=== PATIENT | female | born 1960 | race Caucasian/White ===

== ENCOUNTER 2016-07-16 04:18 | Inpatient (IN) | payer MEDICAID ==
[~2016-07-16] VITALS: Ht 154.9 cm; Wt 57.5 kg
[~2016-07-16 04:18] MED LIST: ASPIRIN EC81 MG PO; BENADRYL-DPS50 MG PO; BENEFIBER475 GM PO; CO Q-1010 MG PO; DUONEB DPS3 ML IH; EPSOM SALT TP; FISH OIL 1,2001 EACH PO; GARLIC1 EAC1 PO; HUMALOG100 UNIT/1 SQ; HYDROCODON-ACE1 EAC2 PO; INVANZ1 G1 IV; KLOR-CON PO; LANTUS100 UNITS/ SQ; LASIX DPS20 MG PO; LASIX40 MG PO; MAALOX DPS30 ML PO; MAG-OX400 MG PO; MELATONIN5 M2 PO; MEVACOR20 MG PO; NEURONTIN DPS100 MG PO; NORCO 5-325 TA1 EACH PO; NOVOLOG100 UNIT/2 SQ; PEPCID20 MG PO; TOUJEO SOL300 UNIT/1 SQ; TYLENOL325 MG PO; VITAMIN PO; ZESTRIL DPS2.5 MG PO; [UNRECOGNIZED DRUG - OTHER] PO; [UNRECOGNIZED DRUG - OTHER] PO
--- NOTE | 2016-07-18 07:05 | ER ---
ADMIT: 07/16/2016 RM/LOC: ER [facility] MR#: [id number] [address] [facility] [place], [place] [address] RACHNA HOLDER [address] [place], [place] [address] Emergency Room Report SEX: F AGE: 55 : 1960 DATE: 07/16/2016 The patient is a 55-year-old female with a past medical history of hypertension; diabetes; hyperlipidemia; coronary artery disease, status post five-vessel stent in June 2016. The patient was discharged last week from [facility] and states that she felt okay and she was ambulated until today that she was not able to walk because of generalized weakness and did not feel good and felt dizzy. The patient denied any chest pain or increased shortness of breath. The patient had chest pain on June 25 and had STEMI and got one cardiac stent in [place], and was transferred to [facility] and over there per patient, got 4 more stents and also the fluid was taken out from bilateral lungs because of shortness of breath. The patient was discharged last week. In the ER, the patient had systolic blood pressure in the low 80s, comparing with the previous systolic blood pressure of 95 to 105 in previous visit, with the MAP of 55 to 60. The patient was started on IV fluid. Sepsis workup was started. The patient was afebrile in the ER. EKG did not show any ST or T changes or arrhythmia. The patient received closed to 2 L of fluid. Chest x-ray was positive for very mild bilateral effusion. The patient also had an echocardiographic from [facility] with ejection fraction of 35% to 40% for the left heart. The patient had hemoglobin of 8.3 with WBC of 8.1 and platelet of 373,000, lactic acid was 1.2. Electrolytes are grossly normal. Troponin I is elevated mildly with 0.065, also proBNP was elevated to 5200. Internal Medicine was consulted, and the patient was admitted for further followups and treatment with Cardiology on board. DIAGNOSES: 1. Dehydration. 2. Dizziness. 3. Congestive heart failure, rule out nza-XJ-exyiyczvj myocardial infarction, rule out sepsis. Diony Sim MD/ ariel JOB #: [id number] CC: Diony Sim MD, Attending Physician Roly Holland DO, Family Physician
--- NOTE | 2016-07-23 14:54 | NUR ---
Pt contacted Karishma at [facility]. States she can't afford her dc medication Linzess. Karishma contacted [facility]. [facility] contact [address] [facility] Dillon of the Linzess is $355.00 and [facility] is unable to help due to the high cost of the medication. Pt is aware and states she contacted the doctors office already and has a message for the doctor asking for samples or a different medication. Pt will contact [facility] for further needs or concerns.
[2016-07-23] MEDS ORDERED: LINZESS145 MCG PO (18:40)
[2016-07-23] MEDS ORDERED: NEURONTIN DPS100 MG PO (18:40)
[2016-07-23] MEDS ORDERED: ZESTRIL DPS2.5 MG PO (18:40)
[2016-07-23] MEDS ORDERED: CARVEDILOL3.125 MG PO (18:40)
[2016-07-23] MEDS ORDERED: BRILINTA90 MG PO (18:40)
[2016-07-23] MEDS ORDERED: LIPITOR40 MG PO (18:40)
[2016-07-23] MEDS ORDERED: MAGNESIUM OXID400 MG PO (18:41)
[2016-07-23] MEDS ORDERED: PEPCID DPS20 MG PO (18:41)
[2016-07-23] MEDS ORDERED: RANEXA1000 MG PO (18:41)
[2016-07-23] MEDS ORDERED: TOUJEO SOL300 UNIT/1 SQ (18:42)
[2016-07-23] MEDS ORDERED: ASPIRIN EC81 MG PO (18:42)
[2016-07-23] MEDS ORDERED: LASIX DPS80 MG PO (18:42)
[2016-07-23] MEDS ORDERED: REGLAN-DPS10 MG PO (18:44)
[2016-07-23] MEDS ORDERED: NOVOLIN R,100 UNITS/ SQ (18:44)
--- NOTE | 2016-07-26 08:25 | HP ---
ADMIT: 07/16/2016 RM/LOC: 306 [facility] MR#: [id number] [address] [facility] [place], [place] [address] RACHNA HOLDER [address] [place], [place] [address] History and Physical SEX: F AGE: 55 : 1960 DATE OF SERVICE: 07/16/2016 REASON FOR HOSPITALIZATION: Hypotension. HISTORY OF PRESENT ILLNESS: A 55-year-old, female patient, recently suffered AL, underwent cardiac catheterization, PCI here and then transferred to [facility] and underwent additional intervention. She was dismissed and had been doing relatively well, but has intermittent episodes of nausea. Over the last 24 to 48 hours, she has been nauseated and states that she is only able to drink about half a bottle water throughout the day yesterday. She then became generally weak, her son tried to stand her up, but she became dizzy and was unable to stand. They called the emergency squad and brought her to the emergency room where she was found to be hypotensive. PAST MEDICAL HISTORY: She does have a history of diabetes mellitus, foot surgery, peripheral neuropathy, coronary artery disease, myocardial infarction, MRSA of the foot, prior foot surgery for exploration and foreign body removal. MEDICATIONS: Include: 1. Lasix. 2. Spironolactone, and otherwise awaiting the completion of her intake med list. There are dismissal meds from the [facility] from recent, which did show: 1. Aspirin 81 mg daily. 2. Atorvastatin. 3. Lipitor 40 mg daily. 4. Carvedilol 3.125 mg b.i.d. 5. Doxycycline 100 mg b.i.d. 6. Lasix 20 mg daily. 7. Gabapentin 100 mg two capsules three times a day. 8. Lortab. 9. Insulin regular. 10.Lisinopril 2.5 mg daily. 11.Magnesium oxide. 12.Melatonin. 13.Ranexa. 14.Aldactone. 15.Brilinta. 16.Toujeo. For specifics of dosing, please refer to her finalized medication list. SOCIAL HISTORY: Noncontributory. She does live independently. FAMILY HISTORY: Noncontributory. REVIEW OF SYSTEMS: She denies any current chest pain, nausea, but did have nausea at presentation. She has been having some trouble with nausea around ADMIT: 07/16/2016 RM/LOC: 306 [facility] MR#: [id number] [address] [facility] [place], [place] [address] RACHNA HOLDER [address] [place] [address] History and Physical SEX: F AGE: 55 : 1960 mealtimes bringing up the concern of possible gastroparesis. She denies any history of gallbladder disease, but still does have her gallbladder and does not think that it has been evaluated. She denies any bleeding. PHYSICAL EXAMINATION: GENERAL: She is pleasant and alert. She is a good historian. VITAL SIGNS: In the ER, she was hypotensive, her blood pressure now systolics in the mid 90s. HEART: Regular. LUNGS: Otherwise clear. ABDOMEN: Soft, nontender. LABORATORY DATA: BUN 16, creatinine 0.8, potassium 3.6, magnesium 1.6, hemoglobin 8.3. IMPRESSION: 1. Dehydration and hypotension with underlying history of coronary artery disease and ischemic cardiomyopathy and reported ejection fraction of 35%. 2. Diabetes. 3. Possible gastroparesis. 4. Coronary artery disease. 5. Anemia. PLAN: Admit, gentle hydration, hold her diuretics, ask Cardiology to see and assist with her cardiac cares. We will perform ultrasound of her abdomen. Consider gastric emptying study. Watch hemoglobin and hematocrit. Replace magnesium. Roly Holland DO/ modl JOB #: [id number] CC: Roly Holland, Attending Physician Roly Holland, Family Physician
[2016-08-10] MEDS ORDERED: BACTRIM DS TAB1 EACH PO (11:04)
[2016-08-10] MEDS ORDERED: KLOR-CON M2020 ME1 PO (11:04)
[2016-08-10] MEDS ORDERED: TYLENOL EXTRA500 M1 PO (11:05)
--- NOTE | 2016-08-31 10:51 | DS ---
ADMIT: 07/16/2016 RM/LOC: 509 [facility] MR#: [id number] ACC#: [id number] [address] [address] RACHNA HOLDER Deven [address] [place] [address] Discharge Summary SEX: F AGE: 55 : 1960 ADMISSION DATE: 07/16/2016 DISCHARGE DATE: 07/22/2016 REASON FOR HOSPITALIZATION: Dehydration, hypotension. HISTORY OF PRESENT ILLNESS: A 55-year-old, female patient, recently suffered an WA with cardiac catheterization and PCI, had developed nausea 48 hours prior to presentation with poor p.o. intake and difficulty staying hydrated. She continued to take her diuretic dosing in spite of this. She reported that she was unable to stand even with assistance and was dizzy. She came to the emergency room where she was found to be hypotensive. HOSPITAL COURSE: She was admitted to the hospital, underwent management of her chronic diabetes and general care. We performed ultrasound of her abdomen, gave her IV fluids, held her diuretics, and kept her n.p.o. initially. I did replace her magnesium, and set her up for a Cardiology evaluation. They did not think her issues were rhythm or cardiac related. She did have a mild bump in her troponin, and they felt that this was not cardiac in nature. We did an ultrasound and perform evaluation for gastroparesis. She was started on Reglan and insulin doses were adjusted. Ultrasound of her gallbladder did show a thickened gallbladder wall. We did also schedule her for a gastric emptying study. She did have a pleural effusion and she underwent thoracentesis, which did improve her respiratory status. She was having some dyspnea with exertion prior to this. Her HIDA scan was negative. Gastric emptying study was markedly abnormal with significant delay in gastric emptying. On 07/22/2016, we felt she was appropriate for dismissal home. FINAL DIAGNOSES: 1. Three-vessel coronary artery disease. 2. Diabetes. ADMIT: 07/16/2016 RM/LOC: 509 [facility] MR#: [id number] [address] [address] RACHNA HOLDER [address] [place] [address] Discharge Summary SEX: F AGE: 55 : 1960 3. Gastroparesis. 4. Systolic heart failure. 5. Pleural effusions. 6. Anemia. 7. Constipation. 8. Idiopathic cardiomyopathy. Before dismissal, we asked dietitians to see to help her with a dietary choices. She was to follow up one time in my office within two weeks. She is a city-call patient. We did ask Cardiology to address and manage her diuretic and heart failure management. They dismissed her on Lasix 40 mg b.i.d., and they made arrangements for followup in the Cardiology clinic within 1 to 2 weeks. Roly Holland DO/ ariel JOB #: [id number] CC: Roly Holland DO, Attending Physician Roly Holland DO, Family Physician
[2016-11-13] MEDS ORDERED: LANTUS100 UNITS/ SQ (08:18)
[2016-11-13] MEDS ORDERED: IRON325 M1 PO (08:19)
[2016-11-13] MEDS ORDERED: MIRALAX PACKET17 GM PO (08:19)
[2016-11-13] MEDS ORDERED: NOVOLOG100 UNIT/2 SQ (08:20)
[2016-11-13] MEDS ORDERED: LEVAQUIN DPS500 MG PO (08:20)
[2016-11-13] MEDS ORDERED: DULCOLAX-DPS5 MG PO (08:20)
[2017-02-08] MEDS ORDERED: PROTONIX40 MG PO (13:53)
[2017-02-08] MEDS ORDERED: FOLVITE-DPS1 MG PO (13:53)
[2017-02-08] MEDS ORDERED: COLACE-DPS100 MG PO (13:57)
== END 2016-07-22 17:45 | disposition home or self-care (01) | DRG 640 ==
LOC: ER 04:18 → 3ICU 05:53 → 5MS 07-22 03:41
PROVIDERS: ADMIT Internal Medicine
PROC: 0W9B3ZX Drainage of Left Pleural Cavity, Percutaneous Approach, Diagnostic (ICD-10-PCS; principal; 2016-07-19)
PROC: 0W993ZX Drainage of Right Pleural Cavity, Percutaneous Approach, Diagnostic (ICD-10-PCS; 2016-07-21)
DX: E86.0 Dehydration (principal); I21.09 ST elevation (STEMI) myocardial infarction involving other coronary artery of anterior wall; J91.8 Pleural effusion in other conditions classified elsewhere; I95.9 Hypotension, unspecified; I11.0 Hypertensive heart disease with heart failure; K31.84 Gastroparesis; E11.43 Type 2 diabetes mellitus with diabetic autonomic (poly)neuropathy; I50.22 Chronic systolic (congestive) heart failure; D64.9 Anemia, unspecified; I25.5 Ischemic cardiomyopathy; E78.5 Hyperlipidemia, unspecified; L84 Corns and callosities; I25.10 Atherosclerotic heart disease of native coronary artery without angina pectoris; Z95.5 Presence of coronary angioplasty implant and graft; Z86.14 Personal history of Methicillin resistant Staphylococcus aureus infection; Z79.82 Long term (current) use of aspirin; Z79.4 Long term (current) use of insulin

== ENCOUNTER 2016-08-02 02:17 | Inpatient (IN) | payer MEDICAID ==
[~2016-08-02] VITALS: Ht 154.9 cm; Wt 56.3 kg
--- NOTE | ~2016-08-02 | ECH ---
Transthoracic Echocardiography Report (TTE) Demographics Patient Name RACHNA HOLDER Date of Study 08/03/2016 Patient Number [id number] Visit Number [id number] Date of 1960 Room Number 315 Accession Number [id number] Gender Female Age 55 year(s) Referring mirza Desai Java Developer Denisa Christine [facility] Physician Physician Interpreting [facility] Gutierrez R Tank Filler Physician MD Supervising Ordering Physician Greg MARTÍNEZ MD/WILFREDO Bhakta Nurse Stress It Recruiter Conclusions Summary Technically adequate exam. The estimated left ventricular ejection fraction is 30-35%. Segmental wall motion abnormalities noted. Normal right ventricle structure with mildly reduced function. Procedure Type of Study TTE procedure:Echo Limited SF. Procedure Date Date: 08/03/2016 Start: 09:21 AM Technical Quality: Adequate visualization Indications:Hypotension, Ischemic Cardiomyopathy and Coronary artery disease. Appropriate Use Criteria: 9 Height: 61 inches Weight: 123 pounds BSA: 1.54 m Rhythm: Sinus with bundle branch block HR: 80 bpm BP: 94/58 mmHg Allergies - No known allergies. M-Mode/2D Measurements LV Diastolic Dimension: 4.71 cm LV Systolic Dimension: 3.85 cm LV Septum Diastolic: 0.93 cm LV PW Diastolic: 0.95 cm LA Dimension: 3.66 cm RV Diastolic Dimension: 2.63 cm LA volume: 42.7 ml LA volume index: 28 ml/m RV Base: 3 cm RV Mid: 2.3 cm RV Length: 7 cm TAPSE: 1 cm TDI-S': 0.9 cm/s Doppler Measurements RA Area: 10.11 cm Findings Left Ventricle The left ventricle is normal in size . Right Ventricle Normal right ventricle structure with mildly reduced function. Left Atrium Normal left atrial size. Right Atrium Normal right atrial size. Pericardial Effusion Trivial pericardial effusion. Miscellaneous Visualized portions of the aortic root and ascending aorta appear normal in size. Pleural Effusion Pleural effusion present. Contractility Score LV regional wall motion:(0-Non visualized 1-Normal 2-Hypokinesis 3-Akinesis 4-Dyskinesis 5-Aneurysm) Signature
--- NOTE | ~2016-08-02 | WND ---
ADMIT: 08/03/2016 RM/LOC: 315 [facility] MR#: [id number] 26[address] [facility] [address] [place] [phone] MICHELLE HOLDER [address] [place] [address] W[facility] Care Clinic SEX: F AGE: 55 : 1960 DATE OF VISIT: 08/03/2016 TIME OF VISIT: 15 minutes. HISTORY OF PRESENT ILLNESS: Michelle is a 55-year-old female who was admitted through the emergency room on 08/02/2016 for chest pain. Wound Care is currently following her for an ulcer that she has to the plantar surface of her left foot. Michelle is well known to us as we have been following her for this foot ulcer since 03/19/2016. Michelle initially stepped on a piece of glass 3 weeks prior to March 19 and thought she got the glass out. However, being diabetic with neuropathy, this got infected and abscessed. She underwent incision and drainage on March 17 and and then again on 06/24/2016. She was last seen in outpatient wound clinic on 07/29/2016 by Beatriz Louie APRN, ALBERTA. She states that her son reported on 07/30/2016, that there was no drainage, and so they have just been covering it with a Band-Aid. She denies any complaints of pain to her heel ulcer. PAST MEDICAL HISTORY: Type 2 diabetes mellitus, foot surgery, peripheral neuropathy, coronary artery disease, myocardial infarction, MRSA of the foot, prior foot surgery and exploration of foreign body removal. In June, she sustained an anterior ST elevated PA and had her LAD stented. She was sent to [facility] where she underwent staged PCI of her right coronary artery and left circumflex artery. She ended up receiving 4 additional stents at [facility]. Her ejection fraction was 25% and a life vest was placed. She has been wearing that since then. She has been admitted to the hospital a week ago for hypotension. MEDICATIONS: 1. Lasix. 2. Spironolactone. 3. Aspirin. 4. Atorvastatin. 5. Lipitor. 6. Carvedilol. 7. Doxycycline. 8. Lasix. 9. Gabapentin. 10.Lortab. 11.Insulin. 12.Lisinopril. 13.Magnesium oxide. 14.Melatonin. 15.Ranexa. 16.Aldactone. 17.Brilinta. 18.Toujeo. SOCIAL HISTORY: She resides in [place], [place] with her son. Her is currently serving time in jail for a crime he did not commit ADMIT: 08/03/2016 RM/LOC: 315 [facility] MR#: [id number] [address] [place] [phone] [place] [address] Wound Care Clinic SEX: F AGE: 55 : 1960 according to Michelle. She was forced to stop working due to the history of this foot ulcer. 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 ALLERGIES: No known medication allergies. FAMILY HISTORY: Father at age 62 from an PA. Mother at 78 from an aneurysm. REVIEW OF SYSTEMS: Michelle is alert and oriented and is examined in her room in [facility]. She recently was taken off oxygen. She denies any shortness of breath. She denies any chest pain. She denies any cough. She denies any nausea, vomiting, or diarrhea. She did tell me that she does not have a very good appetite and is actually down to 118 pounds. PHYSICAL EXAMINATION: VITAL SIGNS: Temperature is 97.6 degrees Fahrenheit, pulse 101, respirations 18, blood pressure 109/52, pulse ox 93% on room air. Assessment reveals an alert and oriented 55-year-old female. Assessment of her left foot reveals a reddy crusted area over her heel that measures 2 cm in width x 0.3 cm in length. There is scar tissue surrounding. There is no periwound erythema, edema, or drainage. She has a 2+ dorsalis pedis pulse and 1+ pitting edema. No hair growth below the knee. ASSESSMENT: Left heel abscess, status post incision and drainage, 03/17/2016, 03/19/2016, and 06/24/2016. PLAN: At this time, we are going to leave it open to air. There is no drainage that warrants a dressing. If this changes, I would encourage the ICU nurses to let us know. However, I think she is virtually healed at this time. Wound Care will continue to follow. Adri Garduno APRN/ josé miguell JOB #: [id number] CC: Matt Adam, Attending Physician Matt Adam, Family Physician
[~2016-08-02 02:17] MED LIST changes: +BRILINTA90 MG PO; +CARVEDILOL3.125 MG PO; +LASIX DPS80 MG PO; +LINZESS145 MCG PO; +LIPITOR40 MG PO; +MAGNESIUM OXID400 MG PO; +NOVOLIN R,100 UNITS/ SQ; +PEPCID DPS20 MG PO; +RANEXA1000 MG PO; +REGLAN-DPS10 MG PO
--- NOTE | 2016-08-02 19:08 | ER ---
ADMIT: 08/02/2016 RM/LOC: 411 [facility] MR#: [id number] [address] [address] RACHNA HOLDER [address] [place] [address] Emergency Room Report SEX: F AGE: 55 : 1960 DATE: 08/02/2016 The patient is a 55-year-old female with past medical history of coronary artery disease, status post 5 stents last month, who came to the ER today for 2 hours of right and precordial chest pain. The pain started while the patient was resting and it was sharp, the pain did not increase with palpation or deep breathing. The patient states the pain resolved by the time she got to the hospital. The patient denies any new onset shortness of breath or leg swelling, and is compliant with her medications. The patient was given aspirin en route, which she has threw up one. On physical examination, the patient was in no pain or distress in the ER, was not tachycardic, afebrile, O2 saturation was normal at room air. The patient was in no acute distress. Head and neck were noncontributory. Lungs are clear bilaterally. Normal S1, S2 without any murmurs. Abdomen is soft. The rest of the physical exam is noncontributory and the patient had no swelling of the lower extremities. EKG did not show any ST or T changes or Q waves or arrhythmia. Cardiac enzymes are negative. Chest x-ray was negative for any acute changes. The patient was observed and develop another episode of chest pain in the ER, which self- resolved after few minutes. The patient was observed and did not develop any new symptoms. Cardiology service was consulted. Considering the patient's previous high risk, extensive cardiac history, the patient was admitted for further followups and possible serial enzyme check per their discretion. Diony Sim MD/ ariel JOB #: [id number] CC: Matt Adam MD, Attending Physician UNKNOWN, Family Physician
--- NOTE | 2016-08-06 11:07 | CO ---
ADMIT: 08/03/2016 RM/LOC: 418 [facility] MR#: [id number] [address] [address] RODOLFO HOLDERDIEGO Carvalho [address] [place] [address] Consultation SEX: F AGE: 55 : 1960 DATE OF CONSULTATION: 08/05/2016 ATTENDING PHYSICIAN: Matt Adam CONSULTING PHYSICIAN: Sg Barron MD REASON FOR CONSULT: Diabetes and UTI management. REASON FOR ADMISSION: This is a 55-year-old female, who was admitted for chest pain on the . She had been admitted for chest pain and initial workup did not show any cardiac ischemia. However, her NT-proBNP was 3722. It should be noted that she had been admitted about a month prior with an acute anterior NV. She had subsequent stents 4 mm x 3 mm Xact but still unfortunately resulted in a discharge ejection fraction of 25%. She was admitted. Upon admission here, she was ruled out for acute cardiac ischemia. She was found hypotension. She was admitted to Intensive Care Unit, where Pulmonology/Critical Care was consulted. She ultimately had some severely low blood sugars, while she was here and low blood pressures. She was given a fluid bolus and transferred to the ICU. Again, Pulmonology was consulted. She ultimately was given some albumin on the and monitored in the ICU. Workup eventually showed her having urinary tract infection. She had been placed on vancomycin and meropenem and was on dobutamine as well as she ultimately was on dopamine to keep her blood pressure. She also had a wound treated ultimately has did better and her dopamine was discharged. She has ultimately been found to have urinary tract infection. Oral medications put back on she was transferred to [facility]. Her blood sugars continue to fluctuate and when I consulted last night, they got down into the 20s. She reports at home, she checked her Toujeo insulin in the evening and of in the morning, she has noted her blood sugars to be pretty low before, so this is not really unusual for her. Other complaint at this time as she has not had a bowel movement since she got here on Tuesday. She has been refusing to take Linzess, which she normally takes at home because they gives her diarrhea. She denies any specific abdominal pain but has had nausea off and on. PAST MEDICAL HISTORY: Coronary artery disease, hypertension, diabetes, hyperlipidemia, MRSA infection of foot, anemia of peripheral neuropathy, gastroparesis, acid reflux, coronary artery disease, ischemic cardiomyopathy. PAST SURGICAL HISTORY: Includes tubal ligation, D and C, and tonsillectomy as well as the recent percutaneous cardiac instrumentation. ALLERGIES: NONE. CURRENT MEDICATIONS: 1. Aspirin 81 mg daily. ADMIT: 08/03/2016 RM/LOC: 418 [facility] MR#: [id number] 26[address] [place] [id number] RACHNA HOLDER [address] [place] [address] Consultation SEX: F AGE: 55 : 1960 2. Brilinta 90 mg p.o. b.i.d. 3. Coreg 3.125 mg b.i.d. 4. Linzess 145 mcg daily. 5. Lipitor 40 mg at bedtime. 6. Magnesium oxide 400 mg daily. 7. Neurontin 200 mg t.i.d. 8. Protonix 40 mg daily. 9. Ranexa 1000 mg b.i.d. 10.Reglan 10 mg q.a.c. and at bedtime. 11.Tylenol 1000 mg q.8 hours. 12.Levemir 35 units at bedtime. 13.Regular Novolin insulin moderate dose. FAMILY HISTORY: Significant for heart disease in her father and he had a myocardial infarction. SOCIAL HISTORY: She lives with her son. She is and unfortunately in [facility]. Denies any alcohol or drug use. REVIEW OF SYSTEMS: Other complete review of systems reviewed entirely but negative except as above. PHYSICAL EXAMINATION: GENERAL: This is a pale-appearing, 55-year-old female. She is in no apparent distress. HEAD: Normocephalic and atraumatic. Pupils equally round, and reactive to light and accommodation. She is wearing glasses. Her throat is clear. NECK: Supple. Thyroid is nonpalpable and trachea is midline. HEART: Regular rate and rhythm with 3/6 systolic murmur heard best at the left sternal border. LUNGS: Diminished, but clear bilaterally. ABDOMEN: Protuberant but soft without any tenderness. EXTREMITIES: Lower extremities have no edema. She has DIANA hose in place. She can move all extremities bilaterally. Her strength is 4+/5 throughout. NEUROLOGIC: Cranial nerves are intact. Gait was not tested. LABORATORY AND X-RAY DATA: Chest x-ray from today showed increasing bibasilar opacities with small pleural effusions and some atelectasis or infiltrate. BMP from today showed creatinine of 0.7, sodium 141, potassium 3.7, magnesium 2.3. CBC white count 10.5, hemoglobin 8.0, platelets of 524. Most recent blood sugar 158. ASSESSMENT AND PLAN: 1. Urinary tract infection with Klebsiella pneumonia. This was pansensitive except to ampicillin. 2. Diabetes, uncontrolled. 3. Vzbzy-te-dmfpngj systolic congestive heart failure. 4. Ischemic cardiomyopathy. 5. Coronary artery disease. ADMIT: 08/03/2016 RM/LOC: 418 [facility] MR#: [id number] [address] [place] [phone] RACHNA HOLDER [address] [place] [address] Consultation SEX: F AGE: 55 : 1960 6. Hypoxic respiratory failure on 2 L of oxygen. 7. Anemia, not otherwise specified at this time. 8. Gastroparesis. 9. Constipation. PLAN: I am going to start her on Bactrim for her UTI. Stop her current sliding scale insulin and start NovoLog low-dose sliding scale q. a.c. only but we will check a chest blood sugars. I will also change her Levemir to 25 units in the morning, hopefully avoid then nighttime lows. Stopping her Protonix, given she is on antibiotics to avoid Clostridium difficile infection. We will start Pepcid 20 mg daily instead. On workup, her anemia with vitamin B12, ferritin, iron, TIBC. Because of the constipation, I will give her Dulcolax 5 mg two pills x1 now. It seems like the x-ray today showed some increasing fluid. She was given Lasix at about 11 o'clock this morning, so I's and O's was just a little bit negative throughout the day, that is -150. We will go ahead and give her another dose of Lasix now and we will make sure she have a chest x-ray in the morning and make sure this is improving. Sg Barron MD/ ariel JOB #: [id number] CC: Matt Adam, Attending Physician Matt Adam, Family Physician
--- NOTE | 2016-08-09 10:29 | CO ---
ADMIT: 08/02/2016 RM/LOC: 315 [facility] MR#: [id number] [address] [facility] [address] [place] [phone] HOLDER RACHNA L [address] [place] [address] Consultation SEX: F AGE: 55 : 1960 DATE OF CONSULTATION: 08/03/2016 ATTENDING PHYSICIAN: Matt Adam CONSULTING PHYSICIAN: Kirill Akbar MD HISTORY OF PRESENT ILLNESS: A 55-year-old lady transferred from the general care with hypotension. She is a diabetic, nonsmoker, lives with her son and a sister in [place]. Her is in [facility]. She is admitted yesterday with chest pain. Troponin was negative. It was considered as atypical. She does have ischemic cardiomyopathy with ejection fraction low, exact number is not known. She indicated, it may be 36. In June, she had 1 stent here and 4 stents in [facility], total of 5. She has been on Coreg and lisinopril. She also has high blood pressure besides diabetes. She has been seen by Dr. Trevino and she did receive 500 mL of normal saline IV bolus. She has come down and I was called in because of hypotension. Her blood pressure was in the 60s. At this time, she denies any chest pain. She feels cold. She had E. coli sepsis in 2014. She has discoloration of her abdominal skin secondary to that. She also has left foot ulcer, which has grown MRSA. PHYSICAL EXAMINATION: GENERAL: She is alert and appropriate. 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 EXTREMITIES: No edema. No clubbing. She was fully appropriate. VITAL SIGNS: Her blood pressure 82 systolic, heart rate 62, oxygen saturation 98% on supplemental oxygen. NECK: No neck vein distention. SKIN: Appears dry. HEART: No heart murmur, gallop. CHEST: No rales, rhonchi. ABDOMEN: Bowel sounds present. IMAGING: The chest x-ray has been reviewed and compared with the old ones. No change. Cardiac size is within limits of normal, somewhat blunted left costophrenic angle on the AP film. Blood gas is 7.437. PCO2 of 40.5, PO2 of 102.4. Bicarb 26.7, potassium 3.3, glucose 123, BUN 16, creatinine 0.9, albumin 2.1. INR 1.31, white count 10.8, lactic acid 0.9, hemoglobin 8.8, platelets 577. She has low urine output. IMPRESSION: 1. Cardiogenic shock. 2. Hypovolemic. 3. Coronary artery disease, status post stents in June. 4. Ischemic cardiomyopathy. 5. Diabetes mellitus. ADMIT: 08/02/2016 RM/LOC: 315 [facility] MR#: [id number] [address] [address] RACHNA HOLDER [address] [place] [address] Consultation SEX: F AGE: 55 : 1960 6. History of Escherichia coli sepsis. Escherichia coli was labeled as ESBL positive. 7. Methicillin-resistant Staphylococcus aureus foot infection. PLAN: I have given her IV albumin, she is on dopamine. I have ordered a PICC line. After the blood culture has been drawn, she will be started on vancomycin bolus and then pharmacy to dose. She will be started also on meropenem in view of the ESBL in the past. She will need more fluid resuscitation. Overall prognosis is guarded. I would leave the determination of starting her old dobutamine up to Cardiology. Critical care time spent is 45 minutes. Kirill Akbar MD/ ariel JOB #: [id number] CC: Matt Adam, Attending Physician Matt Adam, Family Physician
[2016-08-10] MEDS ORDERED: KLOR-CON M2020 ME1 PO (11:04)
[2016-08-10] MEDS ORDERED: BACTRIM DS TAB1 EACH PO (11:04)
[2016-08-10] MEDS ORDERED: TYLENOL EXTRA500 M1 PO (11:05)
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
--- NOTE | 2016-09-13 14:23 | DS ---
ADMIT: 08/03/2016 RM/LOC: 418 [facility] MR#: [id number] [address] [address] RACHNA HOLDER Deven [address] [place] [id number] General Discharge Summary SEX: F AGE: 55 : 1960 ADMISSION DATE: 08/03/2016 DISCHARGE DATE: 08/09/2016 CONSULTANTS: 1. Dr. Akbar, Pulmonology and Critical Care, on 08/03/2016. 2. Dr. Sg Barron on 08/05/2016 for primary care. 3. Wound Ostomy nurse 08/03/2016 for ulcer on the plantar surface of the left foot. FINAL DIAGNOSES: 1. Chest pain with a history of coronary artery disease, status post myocardial infarction and multiple stents approximately 1 month prior to admission. 2. Ischemic cardiomyopathy with an EF of 35%. 3. Diabetes. 4. Cardiogenic shock. 5. Hypovolemia. 6. History of Escherichia coli sepsis. 7. Methicillin-resistant Staphylococcus aureus foot infection. 8. Urinary tract infection with Klebsiella pneumonia. 9. Acute on chronic systolic heart failure. 10.Hypoxic respiratory failure. 11.Anemia. 12.Gastroparesis. 13.Constipation. HOSPITAL COURSE: The patient admitted on 08/03/2016 for chest discomfort. She has had a known history of coronary artery disease, status post multiple stents and ST elevated myocardial infarction approximately 1 month prior to admission. She was wearing a LifeVest because of her ischemic cardiomyopathy and risk for sudden cardiac . Her cardiac enzymes were negative and her chest pain was deemed atypical. Her EKG looked okay. Tylenol was added for possible musculoskeletal pain. She did have trouble with hypotension and also possible hypothermia with a temp of 98.4. On 08/03, she was given a bolus of fluid. She was more drowsy. Her blood pressure remained low with a MAP of 51 after the 500 mL bolus. Blood cultures were drawn, as was a UA. She was transferred to ICU and Critical Care was consulted. Dr. Akbar was consulted and ordered a chest x-ray, stat ABGs, along with more fluid with albumin and an art line placement. Blood pressure medications were held appropriately. Vancomycin was started for history of the E. coli sepsis and MRSA of the foot ulcer. Dopamine was started for blood pressure support. Merrem was also started. Dopamine was titrated. Limited echo was checked for LV function. Lasix was stopped. Random cortisol was added to her blood levels. Procalcitonin was added. Wound Care did consult on the patient. On 08/04/2016, dopamine was stopped. Sequeira was removed. Art line was removed. A small dose of Coreg was added back. PT/OT was ordered to evaluate and treat. Her antibiotics were continued for her UTI. Critical Care signed off on 08/04/2016. Social Work followed for placement. OT and PT were seeing the patient. On 08/05/2016, she was given Lasix for some fluid overload. Nitroglycerin drip was stopped. ADMIT: 08/03/2016 RM/LOC: 418 [facility] MR#: [id number] [address] [place] [id number] RACHNA HOLDER [address] [place] [address] General Discharge Summary SEX: F AGE: 55 : 1960 Dr. Barron was consulted for treatment of UTI as it was growing Klebsiella. Antibiotics were stopped the day before per Critical Care as it was felt they were not needed. Internal Medicine saw her, started Bactrim, and adjusted her diabetic medications. She did get hypotensive again on 08/06/2016. Her a.m. Coreg dose was held and she was given back some fluid. She was anemic and this was treated per her primary care. She was also complaining of some constipation. It was thought that her low blood pressures may be autonomic giving underlying autonomic disturbances and also her gastroparesis. Orthostatic blood pressures were checked, lying 100/59 with a heart rate of 84, sitting of 103/57 with a heart rate of 85, standing 105/64 with a heart rate of 86. On 08/07/2016, she had an increased cough. She was given another dose of IV Lasix. Her anemia was diagnosed as iron deficiency and low B12. She continued to work with Physical Therapy and Occupational Therapy. Lasix was changed to p.o. on 08/08/2016. Her urinalysis was rechecked. She denied any further chest discomfort. Her PICC line was removed. She was given some Zofran the next day for nausea, dry heaving. On 08/09/2016, she was felt stable for discharge to home with a diagnosis of pneumonia and a UTI, hypotension, ischemic cardiomyopathy, anemia, along with acute on chronic systolic heart failure and history of coronary artery disease. Hemoglobin was stable. Her weight was down to 125 pounds. DISCHARGE DISPOSITION: To home. DISCHARGE CONDITION: Stable. MEDICATIONS: On discharge: 1. Aspirin 81 mg p.o. daily. 2. Bactrim DS 1 tablet p.o. b.i.d. 3. Brilinta 90 mg p.o. b.i.d. 4. Coreg 3.125 mg p.o. b.i.d. 5. Klor-Con 20 mEq p.o. daily. 6. Lasix 80 mg p.o. daily. 7. Lipitor 40 mg p.o. at bedtime. 8. Mag-Ox 400 mg p.o. daily. ADMIT: 08/03/2016 RM/LOC: 418 [facility] MR#: [id number] [facility] [address] [address] RACHNA HOLDER [address] [place] [address] General Discharge Summary SEX: F AGE: 55 : 1960 9. Neurontin 200 mg p.o. t.i.d. 10.Pepcid 20 mg p.o. daily. 11.Ranexa 1000 mg p.o. b.i.d. 12.Reglan 10 mg p.o. before meals and at bedtime. 13.Tylenol Extra Strength. 14.Levemir. FOLLOWUP: She was scheduled for followup with her PCP in 1 week and [facility]ENITA in 1- 2 weeks. VITAL SIGNS ON DISCHARGE: Blood pressure 106/60, O2 saturation of 91%, pulse of 81, temp of 97.1. TAIWO Akhtar / Matt Adam MD / josé miguell JOB #: [id number] CC: Matt Adam MD, Attending Physician Matt Adam MD, Family Physician
[2016-11-13] MEDS ORDERED: LANTUS100 UNITS/ SQ (08:18)
[2016-11-13] MEDS ORDERED: MIRALAX PACKET17 GM PO (08:19)
[2016-11-13] MEDS ORDERED: IRON325 M1 PO (08:19)
[2016-11-13] MEDS ORDERED: NOVOLOG100 UNIT/2 SQ (08:20)
[2016-11-13] MEDS ORDERED: DULCOLAX-DPS5 MG PO (08:20)
[2016-11-13] MEDS ORDERED: LEVAQUIN DPS500 MG PO (08:20)
[2017-02-08] MEDS ORDERED: FOLVITE-DPS1 MG PO (13:53)
[2017-02-08] MEDS ORDERED: PROTONIX40 MG PO (13:53)
[2017-02-08] MEDS ORDERED: COLACE-DPS100 MG PO (13:57)
== END 2016-08-09 13:15 | disposition home or self-care (01) | DRG 291 ==
LOC: ER 02:17 → 3ICU 04:54 → 4PCU 04:54 → 3ICU 08-03 04:11 → 4PCU 08-03 14:15 → 3ICU 08-04 08:33 → 4PCU 08-05 04:07
PROVIDERS: ADMIT Internal Medicine
PROC: 02HV33Z Insertion of Infusion Device into Superior Vena Cava, Percutaneous Approach (ICD-10-PCS; principal; 2016-08-03)
PROC: 4A133B1 Monitoring of Arterial Pressure, Peripheral, Percutaneous Approach (ICD-10-PCS; principal; 2016-08-03)
DX: I11.0 Hypertensive heart disease with heart failure (principal); J96.91 Respiratory failure, unspecified with hypoxia; I95.9 Hypotension, unspecified; E11.649 Type 2 diabetes mellitus with hypoglycemia without coma; K31.84 Gastroparesis; E11.40 Type 2 diabetes mellitus with diabetic neuropathy, unspecified; E11.43 Type 2 diabetes mellitus with diabetic autonomic (poly)neuropathy; N39.0 Urinary tract infection, site not specified; I50.23 Acute on chronic systolic (congestive) heart failure; I25.2 Old myocardial infarction; B96.1 Klebsiella pneumoniae [K. pneumoniae] as the cause of diseases classified elsewhere; D64.9 Anemia, unspecified; K59.00 Constipation, unspecified; I25.10 Atherosclerotic heart disease of native coronary artery without angina pectoris; I25.5 Ischemic cardiomyopathy; K21.9 Gastro-esophageal reflux disease without esophagitis; E78.5 Hyperlipidemia, unspecified; Z82.49 Family history of ischemic heart disease and other diseases of the circulatory system; Z95.5 Presence of coronary angioplasty implant and graft; Z86.14 Personal history of Methicillin resistant Staphylococcus aureus infection; Z79.82 Long term (current) use of aspirin; Z79.4 Long term (current) use of insulin

== ENCOUNTER → 2016-08-24 | Outpatient (CLI) | payer OTHER, MEDICAID ==
[~2016-08-24] MED LIST changes: +BACTRIM DS TAB1 EACH PO; +COLACE-DPS100 MG PO; +DULCOLAX-DPS5 MG PO; +FOLVITE-DPS1 MG PO; +IRON325 M1 PO; +KLOR-CON M2020 ME1 PO; +LEVAQUIN DPS500 MG PO; +MIRALAX PACKET17 GM PO; +PROTONIX40 MG PO; +TYLENOL EXTRA500 M1 PO
== END | disposition home or self-care (01) ==
LOC: PTH.S 07-29 10:00
DX: E11.9 Type 2 diabetes mellitus without complications (principal)

== ENCOUNTER → 2016-09-27 | Outpatient (CLI) | payer OTHER | END | disposition home or self-care (01) | LOC: PTH.S 15:10 | DX: D64.9 Anemia, unspecified (principal); E11.9 Type 2 diabetes mellitus without complications ==

== ENCOUNTER → 2016-10-27 | Outpatient (CLI) | payer OTHER, MEDICAID | END | disposition home or self-care (01) | LOC: PTH.S 10-14 10:45 | DX: E11.9 Type 2 diabetes mellitus without complications (principal); D64.9 Anemia, unspecified ==